=== PATIENT | female | born 1975 | race Caucasian/White ===

== ENCOUNTER → 2019-03-05 19:40 | Outpatient (CLI) | payer OTHER, SELFPAY ==
--- NOTE | 2019-03-05 19:44 | DI.MRI.S_ITS ---
PROCEDURE: MR SHOULDER RT WO CON INDICATIONS: RIGHT SHOULDER PAIN TECHNIQUE: Noncontrast oblique coronal T2 fast spin echo with fat saturation, oblique sagittal T1 spin echo and T2 fast spin echo with fat saturation, axial T1 spin echo and T2 fast spin echo with fat saturation through the shoulder. COMPARISON: None. FINDINGS: Image quality: Diagnostic. Rotator cuff: There is prominent thickening and increased signal identified involving the distal supraspinatus tendon with at least moderate grade partial-thickness tearing along the bursal surface. A small full-thickness component is difficult to exclude at the level of the rotator interval. Low to moderate grade partial-thickness tearing of the infraspinatus tendon with corresponding tendinopathy is also present. The subscapularis and teres minor tendons are intact. There is no significant atrophy identified involving the rotator cuff muscles. Bones and bursae: No acute fracture or dislocation is evident. No suspicious osseous lesions are present. There mild degenerative changes of the glenohumeral joint with an associated small joint effusion. Mild to moderate degenerative changes of the acromial clavicular joint are present. There is a moderate amount of fluid contained within the subacromial subdeltoid bursa. Capsule and soft tissues: Evaluation of the labrum and glenohumeral ligaments is difficult without intra-articular contrast. However, there is at least a small posterosuperior labral tear extending from the 12 o'clock position to the 3 o'clock position. Additional heterogeneity along the inferior labrum is present. No acute injuries are suspected involving the glenohumeral ligaments. The long head of the biceps tendon is normally positioned within the bicipital groove and is otherwise intact and unremarkable. Incidental note is made of borderline prominent axillary lymph nodes. IMPRESSION: 1. At least moderate grade partial-thickness tearing of the distal supraspinatus tendon with corresponding prominent tendinopathy. A small nondisplaced full-thickness tear near the rotator interval is difficult to exclude. 2. Low to moderate grade partial-thickness tearing and tendinopathy of the infraspinatus tendon. 3. Small posterosuperior labral tear. 4. Mild to moderate degenerative changes of the right shoulder joints. 5. Moderate amount of fluid within the subacromial subdeltoid bursa may be reactive. Clinical correlation to exclude bursitis is recommended. 6. N mildly umber prominent left axillary lymph nodes. Dictated by: Waqas Dong M.D. on 03/06/2019 at 10:17 Approved by: Waqas Dong M.D. on 03/06/2019 at 10:20
== END ==
PROVIDERS: Family Provider Family Medicine; PCP Family Medicine; Visit Provider Internal Medicine
DX: M25.511 Pain in right shoulder (principal); M75.111 Incomplete rotator cuff tear or rupture of right shoulder, not specified as traumatic; S43.491A Other sprain of right shoulder joint, initial encounter; M19.011 Primary osteoarthritis, right shoulder
CPT/HCPCS: 73221

== ENCOUNTER → 2020-05-03 15:28 | Outpatient (CLI) | payer OTHER, SELFPAY ==
--- NOTE | 2020-05-03 | DI.MG.S_ITS ---
BILATERAL DIGITAL SCREENING MAMMOGRAM 3D/2D WITH CAD: 05/03/2020 CLINICAL: Routine screening. Comparison is made to exams dated: 12/24/2017 mammogram, 12/07/2017 mammogram, and 11/26/2017 mammogram - [facility]. There are scattered fibroglandular elements in both breasts. Current study was also evaluated with a Computer Aided Detection (CAD) system. There is a biopsy clip in the left breast. No significant masses, calcifications, or other findings are seen in either breast. There has been no significant interval change. IMPRESSION: NEGATIVE There is no mammographic evidence of malignancy. A 1 year screening mammogram is recommended. This exam was interpreted at Station ID: [id number]. NOTE: For mammograms, a report in lay terms will be sent to the patient. Approximately 15% of breast malignancies will not be visualized mammographically. In the management of a palpable breast mass, a negative mammogram must not discourage biopsy of a clinically suspicious lesion. Electronically Signed By: Kuldip abdalla/yonatan:05/03/2020 20:15:34 letter sent: Normal Exam ACR BI-RADS Category 1: Negative 3341F
== END ==
PROVIDERS: Family Provider Family Medicine; PCP Internal Medicine; Referring Provider Internal Medicine; Visit Provider Internal Medicine
DX: Z12.31 Encounter for screening mammogram for malignant neoplasm of breast (principal)
CPT/HCPCS: 77063; 77067

== ENCOUNTER → 2021-04-26 14:48 | Outpatient (CLI) | payer OTHER, SELFPAY ==
--- NOTE | 2021-04-26 14:52 | DI.CT.S_ITS ---
PROCEDURE: CT LE RT WO CON INDICATIONS: Pain in right ankle and joints of right foot TECHNIQUE: Noncontrast 3-mm axial sections acquired from the distal tibial shaft to the talar dome, with coronal and sagittal reformats.. COMPARISON: [facility] [place], CR, XR ANKLE 3 VIEWS WEIGHT BEARING RIGHT, 04/13/2021, 15:20. FINDINGS: Image quality: Excellent. Bones: ORIF hardware within the distal fibula is present, which appears intact. Tibiofibular syndesmotic instrumentation tract is present. Metallic ligament anchor adjacent to the medial malleolus is present. There is a small well corticated bony fragment measuring roughly 4 mm at the posterior tibiofibular interface, suggestive an ununited fracture fragment. Moderate periarticular osteophyte formation at the tibiotalar joint is present, indicating osteoarthritis. Soft tissues: Grossly unremarkable IMPRESSION: 1. Postsurgical sequelae. 2. Osteoarthritis. 3. Small bony fragment at the posterior aspect of the tibial fibular interface, suggestive of an ununited fracture fragment versus osteophyte. Dictated by: Mahamed Landon M.D. on 04/26/2021 at 16:11 Approved by: Mahamed Landon M.D. on 04/26/2021 at 16:13
== END ==
PROVIDERS: Family Provider Family Medicine; PCP Internal Medicine; Referring Provider Orthopaedic Surgery Foot and Ankle Surgery; Visit Provider Orthopaedic Surgery Foot and Ankle Surgery
DX: M25.571 Pain in right ankle and joints of right foot (principal); M19.071 Primary osteoarthritis, right ankle and foot
CPT/HCPCS: 73700

== ENCOUNTER → 2022-02-13 14:51 | Outpatient (CLI) | payer OTHER, MEDICAID, SELFPAY ==
--- NOTE | 2022-02-13 | DI.MG.S_ITS ---
BILATERAL DIGITAL SCREENING MAMMOGRAM 3D/2D WITH CAD: 02/13/2022 CLINICAL: Routine screening. Comparison is made to exams dated: 05/03/2020 mammogram, 11/26/2017 mammogram, 12/07/2017 mammogram, and 12/24/2017 mammogram - [facility]. The tissue of both breasts is predominantly fatty. Current study was also evaluated with a Computer Aided Detection (CAD) system. There is a biopsy clip in the left breast. No significant masses, calcifications, or other findings are seen in either breast. There has been no significant interval change. IMPRESSION: NEGATIVE There is no mammographic evidence of malignancy. A 1 year screening mammogram is recommended. This exam was interpreted at Station ID: [id number]. NOTE: For mammograms, a report in lay terms will be sent to the patient. Approximately 15% of breast malignancies will not be visualized mammographically. In the management of a palpable breast mass, a negative mammogram must not discourage biopsy of a clinically suspicious lesion. Electronically Signed By: Ranjit correa/yonatan:02/13/2022 15:56:01 letter sent: Normal Exam ACR BI-RADS Category 1: Negative 3341F
== END ==
PROVIDERS: Family Provider Family Medicine; PCP Internal Medicine; Referring Provider Family Medicine; Visit Provider Family Medicine
DX: Z12.31 Encounter for screening mammogram for malignant neoplasm of breast (principal)
CPT/HCPCS: 77063; 77067

== ENCOUNTER → 2022-06-26 12:49 | Outpatient (CLI) | payer OTHER, MEDICAID, SELFPAY ==
--- NOTE | 2022-06-26 | DI.RAD.S_ITS ---
PROCEDURE: XR CERVICAL SPINE 2V OR 3V INDICATIONS: Cervicalgia TECHNIQUE: Three views of the cervical spine were acquired. COMPARISON: [facility], , SHOULDER MINIMUM 2 VIEW LEFT, 03/24/2016, 11:53. [facility], , CERVICAL SPINE 2 OR 3 VIEWS, 03/24/2016, 11:51. FINDINGS: Bones: Postsurgical changes are seen from anterior fixation at C5 through C7. Metallic hardware is intact. No acute fractures or dislocations to the C7-T1 level. The lateral masses of C1 appear intact on the odontoid view. No suspicious bony lesions. Mild facet and uncovertebral joint hypertrophy. Soft tissues: No prevertebral soft tissue swelling. IMPRESSION: Stable postsurgical changes from C5 through C7. Dictated by: Ranjit Rivas M.D. on 06/26/2022 at 20:19 Approved by: Ranjit Rivas M.D. on 06/26/2022 at 20:21
--- NOTE | 2022-06-26 | DI.RAD.S_ITS ---
PROCEDURE: XR SHOULDER LT MIN 2V INDICATIONS: Cervicalgia TECHNIQUE: 3 views of the shoulder were acquired. COMPARISON: [facility], , SHOULDER MINIMUM 2 VIEW LEFT, 03/24/2016, 11:53. FINDINGS: Bones: No acute fractures or dislocations. No suspicious bony lesions. Visualized ribs appear intact. Mild acromioclavicular joint osteoarthrosis. Soft tissues: No suspicious soft tissue calcifications. IMPRESSION: No acute osseous abnormality. If the symptoms persist, consider cross sectional imaging such as MRI or CT for further assessment. Dictated by: Ranjit Rivas M.D. on 06/26/2022 at 20:18 Approved by: Ranjit Rivas M.D. on 06/26/2022 at 20:19
== END ==
PROVIDERS: Family Provider Family Medicine; PCP Family Medicine; Referring Provider Family Medicine; Visit Provider Family Medicine
DX: M54.2 Cervicalgia (principal); M19.012 Primary osteoarthritis, left shoulder
CPT/HCPCS: 72040; 73030

== ENCOUNTER 2022-08-06 13:42 | Emergency (ER) | payer OTHER, MEDICAID, SELFPAY ==
[2022-08-06 13:49] VITALS: BP 126/70; PULSE 88; RESP 16; TEMP 37.2; O2SAT 96; BMI 28.8
--- NOTE | 2022-08-06 13:54 | DI.RAD.S_ITS ---
PROCEDURE: XR TOE LT MIN 2V INDICATIONS: injury TECHNIQUE: 3 views of the 3rd toe(s) acquired. COMPARISON: None. FINDINGS: Bones: There is a minimally displaced fracture involving the 3rd proximal phalangeal shaft. No suspicious bony lesions. Soft tissues: No suspicious soft tissue densities. IMPRESSION: Minimally displaced 3rd proximal phalangeal shaft fracture. Dictated by: Brent Longo M.D. on 08/06/2022 at 14:23 Approved by: Brent Longo M.D. on 08/06/2022 at 14:25
--- NOTE | 2022-08-06 15:48 | ED_ITS ---
HPI - Extremity Injury (Lower) <GORDON Charles - Last Filed: 08/06/22 15:52> General Chief Complaint: Extremity Injury, Lower Stated Complaint: middle lt toe, slammed into doorway, poss. broken Time Seen by Provider: 08/06/22 15:31 History of Present Illness HPI Narrative: This is a 46-year-old female presents to the emergency department after she accidentally kicked a toe jam with her left foot injuring her 3rd toe and is concerned that is broken as she states that it has turned purple and is swollen now. She denies any other injury, denies any open wound. States that she took ibuprofen just prior to arrival. She denies any numbness or tingling and states it is still moves and has sensation. Related Data Home Medications Medication Instructions Recorded Confirmed oxycodone-acetaminophen 5 mg-325 1 tab PO PRN ##0 03/16/11 05/16/22 mg tablet (Percocet) Previous Rx's Medication Instructions Recorded estradiol 0.075 mg/24 hr 1 patch transdermal 2XW #8 ea 02/09/22 semiweekly transdermal patch (Vivelle-Dot) progesterone micronized 200 mg 200 mg PO BEDTIME #30 caps 02/09/22 capsule (Prometrium) syringe with needle, safety 1 mL #12 ea 07/05/22 23 gauge x 1 CMP Testosterone See Rx Instructions vaginal DAILY 07/14/22 #30 grams Allergies Allergy/AdvReac Type Severity Reaction Status Date / Time hydrocodone [HYDROCODONE] Allergy Unknown Unverified 05/16/22 09:09 Review of Systems <GORDON Charles - Last Filed: 08/06/22 15:52> Review of Systems Narrative: Review of systems is negative for acute abnormalities unless otherwise noted in HPI Patient History <GORDON Charles - Last Filed: 08/06/22 15:52> Social History Smoking Status: Former smoker Smoking Status: Former smoker Substance Use Type: marijuana Exam <GORDON Charles - Last Filed: 08/06/22 15:52> Initial Vital Signs Initial Vital Signs: Vital Signs Temperature 99.0 F 08/06/22 13:49 Pulse Rate 88 08/06/22 13:49 Respiratory Rate 16 08/06/22 13:49 Blood Pressure 126/70 08/06/22 13:49 Pulse Oximetry 96 08/06/22 13:49 Oxygen Delivery Method 08/06/22 13:49 Extrem Left lower extremity: foot Details: normal capillary refill, abnormal to inspection, tenderness, toes with normal ROM, edema, ecchymosis, vascular exam Details: dorsalis pedis pulse present, posterior tibial pulse present and normal capillary refill and tendon exam Details: active flexion normal and active extension normal <Roman Connell MD - Last Filed: 08/06/22 16:39> Initial Vital Signs Initial Vital Signs: Vital Signs Temperature 99.0 F 08/06/22 13:49 Pulse Rate 88 08/06/22 13:49 Respiratory Rate 16 08/06/22 13:49 Blood Pressure 126/70 08/06/22 13:49 Pulse Oximetry 96 08/06/22 13:49 Oxygen Delivery Method 08/06/22 13:49 Procedures <GORDON Charles - Last Filed: 08/06/22 15:52> Orthopedic Splinting/Casting Injury #1: Lower Extremity Immobilizer: post-op shoe Post splinting neuro exam: intact Post splinting vascular exam: intact Placed by: Nursing Course <GORDON Charles - Last Filed: 08/06/22 15:52> Orders Ordered: ED Orders 08/06/22 13:54 XR toe LT min 2V Stat Vital Signs Vital signs: Vital Signs - 8 hr 08/06/22 13:49 Temperature 99.0 F Pulse Rate 88 Respiratory Rate 16 Blood Pressure 126/70 Pulse Oximetry 96 Oxygen Delivery Method Room Air <Roman Connell MD - Last Filed: 08/06/22 16:39> Orders Ordered: ED Orders 08/06/22 13:54 XR toe LT min 2V Stat Vital Signs Vital signs: Vital Signs - 8 hr 08/06/22 13:49 Temperature 99.0 F Pulse Rate 88 Respiratory Rate 16 Blood Pressure 126/70 Pulse Oximetry 96 Oxygen Delivery Method Room Air MDM - Extremity Injury (Lower) <GORDON Charles - Last Filed: 08/06/22 15:52> Imaging Data Extremity x-ray #1: Radiologist's Impression: PROCEDURE:? XR TOE LT MIN 2V ? INDICATIONS:? injury ? TECHNIQUE:? 3 views of the 3rd toe(s) acquired.? ? COMPARISON:? None. ? FINDINGS:? ? Bones:? There is a minimally displaced fracture involving the 3rd proximal phalangeal shaft.? No suspicious bony lesions.? ? Soft tissues:? No suspicious soft tissue densities.? ? IMPRESSION:? Minimally displaced 3rd proximal phalangeal shaft fracture. ? ? Dictated by: Brent Longo M.D. on 08/06/2022 at 14:23 ? ? Approved by: Brent Longo M.D. on 08/06/2022 at 14:25 ? MDM Narrative Medical decision making narrative: This is a 46-year-old female presents emergency department after she accidentally kicked a door jam and injured the 3rd toe over left foot. X-ray shows a minimally displaced 3rd proximal phalangeal shaft fracture. Patient is neurovascularly intact, was placed in a postop shoe, encouraged to use Tylenol and ibuprofen as needed for pain, elevate, ice frequently, and follow-up at [facility] for recheck. Discussed radha taping, cap refills brisk, without range of motion abnormality or concern for tendon injury, patient has ecchymosis, edema tenderness over the proximal phalanx of his 3rd toe without open wound. Patient is appropriate and amenable to discharge home. Vital signs are stable on repeat examination is unremarkable. Patient has been informed of results. Patient has been given strict return to ER precautions for any new or worsening symptoms. Patient understands to follow up closely with outpatient providers as instructed. Patient understands plan and agrees to discharge home. All questions and concerns answered at this time. Discharge Plan Departure Patient Disposition: Home Clinical Impression: Fracture, phalanx, foot Qualifiers: Encounter type: initial encounter Toe: lesser toe Fracture type: closed Phalanx: proximal Fracture alignment: displaced Laterality: left Qualified Code(s): S92.512A - Displaced fracture of proximal phalanx of left lesser toe(s), initial encounter for closed fracture Instructions: Toe Fracture Activity Restrictions/Additional Instructions: *You have been diagnosed with a proximal bone fracture of the 3rd toe of your left foot. Please wear your ortho shoe, this will help prevent bending of the bone while it starts to heal. Take ibuprofen 800 mg every 8 hours with food and water as needed, okay to take Tylenol 975 mg with that. Elevate frequently, ice can be helpful, try tape but avoid getting a wound in between toes. Follow-up at [facility] for follow-up about this injury, thank you for your patience and I hope you have a good day. *What to do: *Please continue to take your regular medications as directed. [ ] New medication prescriptions sent to your pharmacy: [ ] [ ] New medication written as a paper prescription [ x] No new medications given *Please follow up with your primary care provider in 2-3 days, call for an appointment. Let them know you were seen in the Emergency Department and that we asked that you be seen for follow-up. We will electronically transmit a record of today's note if your PCP is in our system *If you do not have a primary care provider please contact [phone] to establish care with one of the [facility] primary care providers. *Return to Emergency Department if you should have any new, worsening, or concerning symptoms, such as [fever greater than 101F, chills, worsening pain, persistent vomiting or other bothersome symptoms]. Prescriptions: No Action oxycodone-acetaminophen [Percocet] 5 MG/325 MG tablet 1 tab PO PRN Qty: 0 (DME) syringe with needle, safety 1 mL 23 gauge x 1 syringe See Rx Instructions .Route Qty: 12 1RF Rx Instructions: every 2 weeks IM injection to use with Testosterone CMP Testosterone See Rx Instructions vaginal DAILY Qty: 30 3RF Rx Instructions: Apply 0.5gm once a day daily. vaginally daily; estradiol [Vivelle-Dot] 0.075 mg/24 hr patch semiweekly 1 patch transdermal 2XW Qty: 8 12RF Rx Instructions: apply 1 patch for 3 days alternating with 1 patch for 4 days each week progesterone micronized [Prometrium] 200 mg capsule 200 mg PO BEDTIME Qty: 30 12RF Referrals: [facility] [Provider Group] Aamir Goldman MD [Primary Care Provider] - Visit Report Forms: Patient Portal/API <Roman Connell MD - Last Filed: 08/06/22 16:39> Cosign ED Attending Coschaseature Attestation: I was immediately available in the department for consultation. ?This documentation has been reviewed and I agree with assessment and plan. Supervised by Roman Connell MD
== END 2022-08-06 16:03 | disposition home or self-care (01) ==
PROVIDERS: Emergency Provider Nurse Practitioner Critical Care Medicine; Family Provider Family Medicine; PCP Family Medicine
DX: S92.512A Displaced fracture of proximal phalanx of left lesser toe(s), initial encounter for closed fracture (principal); W22.8XXA Striking against or struck by other objects, initial encounter
CPT/HCPCS: 73660; 99283

== ENCOUNTER → 2023-02-15 12:28 | Outpatient (CLI) | payer OTHER, MEDICAID, SELFPAY ==
--- NOTE | 2023-02-15 | DI.ECHO.S_ITS ---
[place] [facility] +---------+ : : [address] : : : : [id number] : : : : Phone: [phone]---------+ Echocardiogram Report + + :Name: ARNOLDO WHEELER Study Date: 02/15/2023 Height: 64 in : :[facility] ReadingLocation: Weight: 165 lb : : Gender: Female BSA: 1.8 m2 : :: 1975 Age: 47 yrs BP: 115/74 mmHg: :Reason For Study: Essential Hypertension : :Ordering Physician: Jones, : :Gavi Performed By: Alla Tai : :Referring: GAVI NG L : + + Interpretation Summary 1) Normal left ventricular thickness, size, wall motion, and systolic function (EF 60-65%). 2) Normal right ventricular size and function. 3) No significant valvular abnormalities. 4) No prior Echo available for comparison. Procedure: A two-dimensional transthoracic echocardiogram with color flow and Doppler was performed. The study quality was technically adequate. There is no prior echocardiogram noted for this patient. The patient was in normal sinus rhythm during the exam. Left Ventricle: The left ventricle is normal in size. There is normal left ventricular wall thickness. The ejection fraction is estimated to be 60-65%. Left ventricular systolic function appears normal without focal wall motion abnormalities. Diastolic parameters suggest probable normal left ventricular diastolic function and normal filling pressures. Right Ventricle: The right ventricle is normal size. The right ventricular systolic function is normal. Atria: The left atrial size is normal. Right atrial size is normal. There is no Doppler evidence for an interatrial shunt. Mitral Valve: The mitral valve leaflets appear mildly thickened, but open well. There is no mitral valve stenosis. There is trace mitral regurgitation. Aortic Valve: The aortic valve is trileaflet. The aortic valve opens well. There is no aortic valve stenosis. No aortic regurgitation is present. Tricuspid Valve: The tricuspid valve is normal. There is no tricuspid stenosis. There is trace tricuspid regurgitation. Pulmonic Valve: The pulmonic valve leaflets are thin and pliable; valve motion is normal. There is no pulmonic valvular stenosis. There is trace pulmonic regurgitation. Great Vessels: The aortic root is normal size. The ascending aorta is normal in size. The pulmonary artery is normal size. The IVC is of normal diameter and collapses greater than 50% with a sniff. This suggests a low right atrial pressure of 3 mm Hg. Pericardium/ Pleura There is a trivial pericardial effusion noted. There is no pleural effusion. MMode/2D Measurements & Calculations LVIDd: 4.5 cm LVOT diam: 2.0 cm LVIDs: 1.9 cm Ao root diam: 3.0 cm FS: 57.8 % asc Aorta Diam: 2.8 cm EPSS: 0.40 cm IVSd: 0.80 cm LVPWd: 0.90 cm LV frausto. diameter/BSA (cm/m^2): 2.5 LV sys. diameter/BSA (cm/m^2): 1.1 LA A2 area: 13.3 cm2 RA long axis: 4.0 cm LA A4 area: 11.7 cm2 RA area: 9.7 cm2 LA length (vol): 4.6 cm RA vol: 20.2 ml LA vol: 28.7 ml RA : 11.2 ml/m2 LA vol index: 15.9 ml/m2 RVD1 (basal): 3.2 cm LVLs ap4: 5.4 cm LVLd ap2: 7.1 cm TAPSE_phl: 2.4 cm LVLs ap2: 6.2 cm Doppler Measurements & Calculations Ao V2 max: 133.0 cm/sec LVOT Max Joaquin: 118.0 cm/sec Ao V2 mean: 99.2 cm/sec LV V1 max P.6 mmHg Ao max P.0 mmHg LV V1 VTI: 22.8 cm Ao mean P.0 mmHg SUSAN(I,D): 2.3 cm2 Ao V2 VTI: 30.8 cm SUSAN(V,D): 2.8 cm2 sev ratio: 0.74 SUSAN indexed to BSA (cm^2/m^2): 1.3 MV E max joaquin: 76.7 cm/sec TR max joaquin: 230.0 cm/sec MV A max joaquin: 73.3 cm/sec TR max P.2 mmHg MV E/A: 1.0 PA V2 max: 88.1 cm/sec Med Peak E' Joaquin: 9.6 cm/sec PA V2 mean: 67.8 cm/sec E/E' med: 8.0 PA mean P.0 mmHg Lat Peak E' Joaquin: 13.1 cm/sec PA pr(Accel): 19.6 mmHg E/E' lat: 5.9 E/e' average: 6.9 MV dec time: 0.18 sec SV(LVOT): 71.6 ml AV VR_phl: 0.89 SUSAN(VTI)/BSA_phl: 1.3 Reading Physician:03:45 PM
--- NOTE | 2023-02-15 | DI.MG.S_ITS ---
BILATERAL DIGITAL SCREENING MAMMOGRAM 3D/2D WITH CAD: 02/15/2023 CLINICAL: Routine screening. Comparison is made to exams dated: 02/13/2022 mammogram, 05/03/2020 mammogram, and 12/07/2017 mammogram - [facility]. Both breasts are almost entirely fatty (category a/<25% glandular tissue). Current study was also evaluated with a Computer Aided Detection (CAD) system. There is a focal asymmetry in the right breast central to the nipple in the retroareolar region. No other significant masses, calcifications, or other findings are seen in either breast. IMPRESSION: INCOMPLETE: NEEDS ADDITIONAL IMAGING EVALUATION The focal asymmetry in the right breast is indeterminate. Additional views with possible ultrasound are recommended. Based on the Tyrer Cuzick model (a risk assessment model) the patient's lifetime risk is 2.8% and her 10 year risk is 0.6%. According to the ACR, ACS, and NCCN guidelines, an annual breast MRI exam along with mammogram is recommended if the patient's lifetime risk is 20% or greater. This exam was interpreted at Station ID: [id number]. NOTE: For mammograms, a report in lay terms will be sent to the patient. Approximately 15% of breast malignancies will not be visualized mammographically. In the management of a palpable breast mass, a negative mammogram must not discourage biopsy of a clinically suspicious lesion. Electronically Signed By: Gerardo Licona M.D. lc/:02/15/2023 13:50:37 letter sent: Additional Imaging Needed ACR BI-RADS Category 0: Incomplete 3340F
== END ==
PROVIDERS: Family Provider Family Medicine; PCP Family Medicine; Referring Provider Family Medicine; Visit Provider Family Medicine
DX: Z12.31 Encounter for screening mammogram for malignant neoplasm of breast (principal); I10 Essential (primary) hypertension
CPT/HCPCS: 77063; 77067; 93306

== ENCOUNTER → 2023-10-23 14:41 | Outpatient (CLI) | payer OTHER, MEDICAID, SELFPAY ==
--- NOTE | 2023-10-23 14:42 | DI.US.S_ITS ---
PROCEDURE: US SOFT TISSUE HEAD AND NECK INDICATIONS: Localized swelling, mass and lump, neck TECHNIQUE: Real-time scanning was performed of the neck region of interest, with image documentation. COMPARISON: None. FINDINGS: Corresponding to the palpable area of concern in the subcutaneous tissues there is a circumscribed isoechoic mass measuring 1.5 x 0.3 x 1.3 cm. No internal vascularity is seen. 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 If there is continued clinical concern, further evaluation could be obtained with MRI or CT. Approved by: Ranjit Rivas M.D. on 10/23/2023 at 17:54
== END ==
LOC: US 14:42
PROVIDERS: Family Provider Family Medicine; PCP Family Medicine; Referring Provider Family Medicine; Visit Provider Family Medicine
DX: R22.1 Localized swelling, mass and lump, neck (principal)
CPT/HCPCS: 76536